=== PATIENT | female | born 1955 | race Caucasian/White ===

== ENCOUNTER 2025-04-09 12:31 | Emergency (ER) | payer OTHER ==
[~2025-04-09] VITALS: Ht 160 cm; Wt 50.0 kg
[~2025-04-09 12:31] MED LIST: ARAV20 PO; FOLI-43 PO; KEPP500 PO; PHEN100C4 PO; SYNTHROID
[2025-04-09 12:33] VITALS: O2SAT 99
[2025-04-09 12:58] LABS: BASOPHILS % 1.4 % (0.0-2.0); EOSINOPHILS % 0.6 % (0.0-5.0); HEMATOCRIT. 38.1 % (36.0-48.0); HEMOGLOBIN. 12.9 g/dL (12.0-16.0); LYMPHOCYTES % 20.7 % (20.0-50.0); MEAN CORPUSCULAR HEMOGLOBIN 32.6 pg (28.0-32.0); MEAN CORPUSCULAR VOLUME 95.8 fL (81.0-99.0); MEAN PLATELET VOLUME 7.8 fl (7.4-10.4); NEUTROPHILS % 65.3 % (40.0-76.0); PLATELET 214 x1000/uL (130-400); RED BLOOD CELL COUNT 3.98 mill/uL (4.2-5.4); RED CELL DISTRIBUTION WIDTH 14.8 % (11.6-14.6); WHITE BLOOD COUNT 2.9 x1000/uL (4.5-11.0)
[2025-04-09 13:08] LABS: CHLORIDE 98 mEq/L (98-107); POTASSIUM 3.8 mEq/L (3.5-5.1); SODIUM 135 mEq/L (136-145)
[2025-04-09 13:09] LABS: CALCIUM 9.2 mg/dL (8.7-10.4); CARBON DIOXIDE 26 mEq/L (21-32)
[2025-04-09 13:14] LABS: CREATININE 0.5 mg/dL (0.6-1.0); GLUCOSE 96 mg/dL (70-105); PHENYTOIN 12.4 ug/mL (10-20); UREA NITROGEN BLOOD 9 mg/dL (9-23)
[2025-04-09] MEDS ORDERED: LEVETIRACETAM 100MG/ML ORAL SYR PO ONE (13:15)
[2025-04-09 13:16] LABS: ALANINE AMINOTRANSFERASE 30 IU/L (10-49); ALBUMIN 4.7 g/dL (3.2-4.8); ASPARTATE AMINOTRANSFERASE 36 IU/L (<34); BILIRUBIN DIRECT 0.2 mg/dL (<=3.0); BILIRUBIN TOTAL 0.6 mg/dL (0.1-1.0); PROTEIN TOTAL 7.2 g/dL (6.0-8.3)
[2025-04-09] MEDS: PHENYTOIN SODIUM EXTENDED 100MG CAPSULE PO ONE (13:19)
[2025-04-09] MEDS: SODIUM CHLORIDE 0.9% 500 ML IV ONE (13:19)
[2025-04-09 14:20] VITALS: BP 163/66; PULSE 85; RESP 18; TEMP 36.8; O2SAT 98
== END 2025-04-09 14:24 | disposition home or self-care (01) ==
LOC: ER 12:31
DX: I10 Essential (primary) hypertension (principal); Z88.0 Allergy status to penicillin; Z79.899 Other long term (current) drug therapy; Z86.59 Personal history of other mental and behavioral disorders; Z86.39 Personal history of other endocrine, nutritional and metabolic disease
CPT/HCPCS: 99284; 96360; 80076; 80048; 80185; 85025; 36415; 93005; J7040

== ENCOUNTER 2025-09-08 13:39 | Inpatient (IN) | payer OTHER ==
[~2025-09-08] VITALS: Ht 157.5 cm; Wt 42.2 kg
[2025-09-08 13:42] VITALS: O2SAT 97
[2025-09-08] MEDS: CLONIDINE 0.1MG TABLET PO NR (14:35)
[2025-09-08 15:01] LABS: BASOPHILS % 1.3 % (0.0-2.0); EOSINOPHILS % 1.1 % (0.0-5.0); HEMATOCRIT. 41.9 % (36.0-48.0); HEMOGLOBIN. 13.7 g/dL (12.0-16.0); LYMPHOCYTES % 21.5 % (20.0-50.0); MEAN PLATELET VOLUME 8.7 fl (7.4-10.4); MONOCYTES % 8.2 % (2.0-8.0); NEUTROPHILS % 67.9 % (40.0-76.0); PLATELET 243 x1000/uL (130-400); RED BLOOD CELL COUNT 4.32 mill/uL (4.2-5.4); RED CELL DISTRIBUTION WIDTH 14.3 % (11.6-14.6)
[2025-09-08 15:18] LABS: CREATININE 0.6 mg/dL (0.6-1.0); TROPONIN I HIGH SENSITIVITY 11 ng/L (3.0-34); UREA NITROGEN BLOOD 9 mg/dL (9-23)
[2025-09-08 15:20] LABS: ASPARTATE AMINOTRANSFERASE 32 IU/L (<34); BILIRUBIN DIRECT 0.2 mg/dL (<=3.0); BILIRUBIN TOTAL 0.9 mg/dL (0.1-1.0); PROTEIN TOTAL 8.4 g/dL (6.0-8.3)
[2025-09-08 17:00] VITALS: BP 143/59; PULSE 73; RESP 16; TEMP 36.3; O2SAT 100
[2025-09-08 17:39] VITALS: BP 143/59; PULSE 73; RESP 16; TEMP 36.3068
[2025-09-08 20:00] VITALS: BP 163/80; PULSE 66; RESP 18; TEMP 36.9; O2SAT 99
[2025-09-08] MEDS ORDERED: HYDROCODONE/ACETAMINOPHEN 10/325MG TABLET PO PRN (21:15)
[2025-09-08] MEDS: ALENDRONATE SODIUM 35MG TABLET PO SCH (21:15)
[2025-09-08] MEDS ORDERED: NALOXONE HCL 0.4MG/ML VIAL IV PRN (21:30)
[2025-09-08] MEDS ORDERED: LEVETIRACETAM 100MG/ML ORAL SYR PO SCH (22:00)
[2025-09-08] MEDS: CYCLOBENZAPRINE 10MG TABLET PO PRN (22:09)
[2025-09-08] MEDS: PHENYTOIN SODIUM EXTENDED 100MG CAPSULE PO SCH (22:09)
[2025-09-08] MEDS: LEVETIRACETAM 500MG TABLET PO SCH (22:09)
[2025-09-09] VITALS: BP 143/71; PULSE 63; RESP 16; TEMP 36.8; O2SAT 99
[2025-09-09 00:06] LABS: UREA NITROGEN BLOOD 7 mg/dL (9-23)
[2025-09-09 00:19] LABS: CREATININE 0.4 mg/dL (0.6-1.0)
[2025-09-09 04:00] VITALS: BP 135/60; PULSE 65; RESP 16; TEMP 36.8; O2SAT 98
[2025-09-09] MEDS: LEVOTHYROXINE SODIUM 150MCG TABLET PO SCH (06:45)
[2025-09-09 08:00] VITALS: BP 160/72; PULSE 75; RESP 16; TEMP 36.4; O2SAT 99
[2025-09-09] MEDS: LOSARTAN 50 MG TABLET PO SCH (09:06)
[2025-09-09] MEDS: METOPROLOL TARTRATE 25MG TABLET PO SCH (09:07)
[2025-09-09] MEDS: FAMOTIDINE 20MG TABLET PO SCH (09:07)
[2025-09-09] MEDS: IBUPROFEN 600MG TABLET PO PRN (11:09)
[2025-09-09] MEDS: POTASSIUM CHLORIDE 20MEQ TABLET SR PO SCH (11:33)
[2025-09-09 12:00] VITALS: BP 167/68; PULSE 65; RESP 16; TEMP 36.4; O2SAT 97
[2025-09-09] MEDS: CLONIDINE 0.1MG TABLET PO SCH (14:34)
[2025-09-09 16:00] VITALS: BP 132/73; PULSE 71; RESP 16; TEMP 36.3; O2SAT 96
[2025-09-09 20:00] VITALS: BP 157/70; PULSE 64; RESP 17; TEMP 36.2; O2SAT 97
[2025-09-09] MEDS: ENOXAPARIN 30MG/0.3ML SYR SUBCUT SCH (20:01)
[2025-09-09] MEDS: METOPROLOL TARTRATE 50MG TABLET PO SCH (21:26)
[2025-09-10] VITALS (7 sets, daily range): BP systolic 106–158; BP diastolic 51–88; PULSE 64–85; RESP 16–17; TEMP 36.1–36.3; O2SAT 95–100
[2025-09-10] MEDS: DOCUSATE SODIUM 250MG CAPSULE PO SCH (09:48)
[2025-09-10] MEDS ORDERED: CLON0.1T MT (09:55)
[2025-09-10] MEDS: CLONIDINE 0.1MG TABLET PO PRN (13:13)
[2025-09-10] MEDS: ISOSORBIDE MONONITRATE 60MG TABLET SR 24HR PO SCH (14:24)
[2025-09-10] MEDS: SUMATRIPTAN SUCCINATE 6MG/0.5ML VIAL SUBCUT SCH (14:25)
[2025-09-10] MEDS: LOSARTAN 50 MG TABLET PO NR (14:31)
[2025-09-10] MEDS: CLONIDINE 0.2MG TABLET PO SCH (22:00)
[2025-09-11] VITALS: BP 102/51; PULSE 66; RESP 17; TEMP 36.4; O2SAT 97
[2025-09-11 04:00] VITALS: BP 114/64; PULSE 76; RESP 17; TEMP 36.5; O2SAT 96
[2025-09-11 08:00] VITALS: BP 138/64; PULSE 80; RESP 18; TEMP 36.3; O2SAT 100
[2025-09-11] MEDS ORDERED: METO-385 MT (09:32)
[2025-09-11] MEDS ORDERED: HYDR100T11 MT (09:32)
[2025-09-11 12:00] VITALS: BP 120/70; PULSE 61; RESP 15; TEMP 36.3; O2SAT 99
[2025-09-11 14:13] VITALS: BP 120/70; PULSE 61; TEMP 97.3
== END 2025-09-11 14:42 | disposition home or self-care (01) | DRG 305 ==
LOC: ER 13:39 → 5WST 15:32 → EDBEDREQ 15:48 → EDBEDREQTM 15:48
PROVIDERS: ADMIT Internal Medicine; ATTEND Internal Medicine
DX: I16.0 Hypertensive urgency (principal); E03.9 Hypothyroidism, unspecified; I10 Essential (primary) hypertension; E78.5 Hyperlipidemia, unspecified; M81.0 Age-related osteoporosis without current pathological fracture; Z79.899 Other long term (current) drug therapy; Z88.0 Allergy status to penicillin; Z88.8 Allergy status to other drugs, medicaments and biological substances
CPT/HCPCS: 36415; 70551; 71045; 80048; 80076; 80320; 83880; 84484; 85025; 93005; 99291; A4606; J1650; J3030; G0480